=== PATIENT | male | born 1975 ===

== ENCOUNTER → 2018-08-27 18:54 | Outpatient (REF) | payer OTHER, BC, SELFPAY ==
[2018-08-27 19:26] LABS: Calcium 10.7 mg/dL (8.4-10.2); Phosphorous 2.9 mg/dL (2.5-4.5)
[2018-08-29 14:00] LABS: Parathyroid Hormone Int 47 pg/mL (14-64)
== END ==
LOC: LAB 18:54
PROVIDERS: Visit Provider Family Medicine Geriatric Medicine
DX: I10 Essential (primary) hypertension (principal); Z00.00 Encounter for general adult medical examination without abnormal findings; E83.52 Hypercalcemia
CPT/HCPCS: 36415; 82310; 83970; 84100